=== PATIENT | female | born 1950 | race Caucasian/White ===

== ENCOUNTER 2016-11-15 07:14 | Emergency (ER) | payer OTHER ==
--- NOTE | 2016-11-15 08:23 | DIAGNOSTIC IMAGING REPORT ---
PROCEDURE: XR CHEST 1 VIEW INDICATION: LEFT UPPER BACK PAIN RADIATING TO LEFT ARM TECHNIQUE: Portable AP view 08:08 a.m. COMPARISON: None. FINDINGS: Lungs are clear. Heart and mediastinum are normal. Thorax is normal. IMPRESSION: 1. Negative chest.
--- NOTE | 2016-11-15 08:42 | ED ORDER SUMMARY ---
..... Patient: TYRESE BRANCH OrderSheet [facility] VisitID: [id number] [address] [place] [address] 66y, F Registration Date/Time: 11/15/2016 ORDER SHEET Weight: 61.2 kg (stated) Allergies: Penicillins, Sulfa Antibiotics GENERAL ORDERS: Chest 1V Urgent (07:11/15/2016 Nyasia Grider) (Ack 7:47 Anita) [employer] Sales Representative (Continuous) (CP equivalent) (07:11/15/2016 Nyasia Grider) (7:42 MWinterer R.N.) CBC w Diff Urgent (07:11/15/2016 Nyasia Grider) (Ack 7:47 Anita) CMP Urgent (07:11/15/2016 Nyasia Grider) (Ack 7:47 Anita) PT with INR Urgent (07:11/15/2016 Nyasia Grider) (Ack 7:47 Anita) PTT Urgent (07:11/15/2016 Nyasia Grider) (Ack 7:47 Anita) D-Dimer Urgent (07:11/15/2016 Nyasia Grider) (Ack 7:47 Anita) Troponin-I Urgent (07:11/15/2016 Nyasia Grider) (Ack 7:47 Anita) Pulse oximeter (07:11/15/2016 Nyasia Grider) (7:42 MWinterer R.N.) MEDICATION ORDERS: IV FLUIDS: IV Saline Lock (07:11/15/2016 Nyasia Grider) (7:42 MWinterer R.N.) ORDER SHEET NOTES: [Electronically signed by Mikael Villa R.N. (07:50 11/15/2016)] [Electronically locked/signed by Mikael Villa R.N. (07:50 11/15/2016)]
--- NOTE | 2016-11-15 08:42 | ED NURSING NOTES ---
Clinical Report - Nurses [facility] [address] [place] [address] 11/15/2016 7:14 Patient: TYRESE BRANCH TRIAGE Acuity: LEVEL 2. Chief Complaint: LEFT ARM PAIN, INDIGESTION, BACK PAIN and DIFFICULTY BREATHING (pt reports mid back pain that began yesterday with radiation to left arm, accomp with "cold sweats"). Alert. No acute distress. SEPSIS SCREEN: Sepsis Screen. Negative (no infection suspected/documented). --07:27 Mikael Villa R.N. 07:19 11/15/16. BP: 132/80. HR: 81 (regular). RR: 15. O2 saturation: 100% on room air. Temp: 97.6 F. Pain level now: 8/10. Additional comments: pt reports pain now 8/10 left side of neck with pain down left arm. --07:27 Mikael Villa R.N. 08:10 11/15/16. BP: 138/81. HR: 64 (regular and normal rate). RR: 15. O2 saturation: 100% on room air. --08:11 Mikael Villa R.N. Weight: 61.2 kg stated. Height/Length: 62 inches Per Patient. BMI: 24.7. --07:25 Mikael Villa R.N. Medications Levothyroxine Sodium Oral. --09:09 Mikael Villa R.N. Allergies Penicillins. --07:22 Mikael Villa R.N. Sulfa Antibiotics. --07:22 Mikael Villa R.N. History Arrived by private vehicle. Historian: patient. This started yesterday. She has had difficulty breathing. Reports experiencing sweating episodes. Treatment ELECTORAL OFFICER: Applied ice and heat. Took ibuprofen. PAST MEDICAL HX: Immunizations: up-to-date. The patient is post-menopausal. SOCIAL HX: Never smoker. Alcohol use; consumes two wine daily. No drug use. No infectious disease exposure. ABUSE ASSESSMENT: No report of abuse. SELF HARM ASSESSMENT: A self harm assessment was performed. The patient answered "no" to the question "Have you recently felt down, depressed, or hopeless?", "Have you noticed less interest or pleasure in doing things?", "Do you have thoughts of harming or killing yourself?", "Are you here because you tried to hurt yourself?", "Have you ever tried to hurt yourself before today?", "Have you recently had thoughts about harming or killing others?" and "Do you have any dangerous items in your possession?". FALL RISK ASSESSMENT: Fall risk assessment completed. No fall risk identified. NUTRITIONAL RISK ASSESSMENT: The nutritional risk assessment revealed no deficiencies. FUNCTIONAL ASSESSMENT: Functional assessment: no impairments noted. LEARNING NEEDS ASSESSMENT: (pt wears hearing aids). SKIN INTEGRITY ASSESSMENT: Skin integrity risk assessment completed. No skin integrity risk identified. --07:27 Mikael Villa R.N. PROBLEMS: Hypothyroidism. --07:26 Mikael Villa R.N. ADDITIONAL SURGERIES: Cataract Surgery. Cochlear implant. Tonsillectomy. --07:23 Mikael Villa R.N. Interventions ID and allergy band on patient. Protocol initiated. To treatment room. --07:27 Mikael Villa R.N. PHYSICAL ASSESSMENT Ambulatory to room. GENERAL / NEURO / PSYCH: Alert. Oriented X 4. Appears in no acute distress. HEENT: Mucous membranes are pink. RESPIRATORY: Respirations not labored. Breath sounds within normal limits. CVS: Cardiac rhythm: sinus rhythm. Pulses within normal limits. Capillary refill less than 2 seconds. GI / : Abdomen soft and nontender. EXTREMITIES: No lower extremity edema. SKIN: Skin is warm and dry. Normal skin turgor. Skin is non-tender. --07:27 Mikael Villa R.N. NURSING PROGRESS NOTES Monitoring of patient in place. Blood samples drawn. (with iv start). Patient gowned. Head of bed elevated. Reassurance given to the patient and patient's family (family arrived at bedside). Two patient identifiers checked. Call light placed in reach. Side rails up x 2. Bed placed in lowest position. Brakes of bed on. Patient ready for evaluation- chart flagged. --07:30 Mikael Villa R.N. EKG time: (719). EKG was ordered, performed by a tech and shown to the ED physician. --07:32 Ebonie Morrow 07:27 11/15/2016 Site #1 started via IV in the right antecubital space with an 20g angiocath, with aseptic technique and good blood return; one attempt. Blood drawn: rainbow set. Labeled in the presence of the patient and sent to the lab. Saline lock flushed with 10 mL saline. --07:42 Sosa Cooper R.N. Portable chest x-ray. The patient is calm and resting quietly. RESPIRATORY: No respiratory distress. ( chest xray at bedside, pt remains in SR, no ectopy noted on monitor. family at bedside, waiting further poc). --08:10 Mikael Villa R.N. ( warm blankets provided for comfortMD at bedside explaining results of tests). --08:28 Mikael Villa R.N. DISPOSITION / DISCHARGE 08:50 11/15/2016 Site #1 removed upon discharge. Bandaid applied. --08:55 Mikael Villa R.N. Condition at departure: unchanged. ( pt provided dc instructions and rx for pickup upon dispo. pt rates pain and symptoms unchanged, pt highly encouraged to return for worsening or changing symptoms. family and pt verbalized understanding). No learning barriers present. Discharge instructions provided and reviewed with the patient. Reviewed medication(s) side effects and precautions information. Prescription(s) given to the patient. Activity restrictions reviewed (per dc instructions). Patient and family verbalized understanding. Written instructions provided in Hungarian. The patient was discharged by the physician. She was discharged home and accompanied by family. She left the Emergency Department ambulatory, via private vehicle and (ambulated to lobby without signs of distress). Family member driving. FALL RISK ASSESSMENT: Fall risk assessment completed. No fall risk identified. --08:57 Mikael Villa R.N. 09:03 11/15/16. BP: 126/87. HR: 59. RR: 15. Pain level now: 01/30. 08:52 11/15/16. BP: 139/86. HR: 66. RR: 16. O2 saturation: 100% on room air. Temp: 98.3 F (oral). Pain level now: 01/30. 08:10 11/15/16. BP: 138/81. HR: 64 (regular and normal rate). RR: 15. O2 saturation: 100% on room air. 07:19 11/15/16. BP: 132/80. HR: 81 (regular). RR: 15. O2 saturation: 100% on room air. Temp: 97.6 F. Pain level now: 04/01. Additional comments: pt reports pain now 8/10 left side of neck with pain down left arm. --09:05 Mikael Villa R.N. Locked/Released at 11/15/2016 9:10 by Mikael Villa R.N.
--- NOTE | 2016-11-15 08:42 | ED CLINICAL REPORT ---
Clinical Report - Physicians/Mid Levels [facility] [address] [place] [address] 11/15/2016 7:14 Patient: TYRESE BRANCH Arrived- By private vehicle. Historian- patient. HISTORY OF PRESENT ILLNESS Chief Complaint: CHEST PAIN. It is described as located in the back (left medial scapular) and radiating (left chest). At its maximum, severity described as moderate. When seen in the E.D., severity described as moderate. Modifying factors- (worsened by laying on left sided. better with not laying on left sided). This started yesterday and is still present (staying the same). It was abrupt in onset and has been constant and waxing/waning but is not gone now. Onset during rest. No vomiting. She has had difficulty breathing and has experienced diaphoresis. No additional chest pain. Similar symptoms previously: None. REVIEW OF SYSTEMS No cough, pedal edema, calf pain or skin rash. All systems otherwise negative, except as recorded above. PAST HISTORY See nurses notes. Medications: Levothyroxine Sodium Oral. Allergies: Penicillins. Sulfa Antibiotics. SOCIAL HISTORY Never smoker. Alcohol use. No drug use. No recent travel. Is a local resident. ADDITIONAL NOTES The nursing notes have been reviewed. PHYSICAL EXAM Vital Signs: Blood pressure normal. Oxygen saturation normal. Appearance: Alert. Oriented X3. No acute distress. Eyes: Pupils equal, round and reactive to light. Eyes normal inspection. ENT: Ears normal. Nose normal. Pharynx normal. Neck: Normal inspection. Neck supple. No meningeal signs. (no step-offs. No crepitus. Overlying skin changes. No midline tenderness). CVS: Normal heart rate and rhythm. Heart sounds normal. Pulses normal. Respiratory: No respiratory distress. Breath sounds normal. Chest nontender. Abdomen: Soft and nontender. Bowel sounds normal. No mass. Back: Normal external inspection. (No step-offs. No crepitus. Overlying skin changes. no midline tenderness). Skin: Skin warm and dry. Normal skin color. No rash. Normal skin turgor. Extremities: Extremities exhibit normal ROM. No lower extremity edema. LABS, X-RAYS, AND EKG EKG: No acute ischemia. Normal EKG. Normal sinus rhythm. Rate: 69. Normal P waves. Normal CHAZ. Normal QRS complex. Normal axis. Normal ST and T waves, QT and QTc. Normal sinus. Prior EKG unavailable. The study has been interpreted contemporaneously. The study has been independently viewed by me. The EKG appears to be a good tracing. I do not agree with or confirm the computer reading of the EKG. Chest X-ray: (PROCEDURE: XR CHEST 1 VIEW INDICATION: LEFT UPPER BACK PAIN RADIATING TO LEFT ARM TECHNIQUE: Portable AP view 08:08 a.m. COMPARISON: None. FINDINGS: Lungs are clear. Heart and mediastinum are normal. Thorax is normal. IMPRESSION: 1. Negative chest.). Laboratory Tests: CBC w Diff: (FELIX: 11/15/2016 07:15) ( MsgRcvd 11/15/2016 07:59) Final results Test Result Flag Units (Reference) WHITE BLOOD COUNT 6.2 K/uL (4.5-11.5) RED BLOOD COUNT 5.22 H M/uL (4.00-5.20) HEMOGLOBIN 15.5 gm/dL (12.0-16.0) HEMATOCRIT 46.3 H % (36.0-46.0) MEAN CELL VOLUME 89 fL (80-100) MEAN CORPUSCULAR HGB 30 pg (26-34) MEAN CORPUSCULAR HGB CONC 33 g/dL (31-37) RED CELL DISTRIBUTION WIDTH 12.2 % (11.6-14.8) PLATELET COUNT 275 K/uL (150-400) NEUTROPHIL % 73.0 % (50-75) LYMPH % 19.9 L % (25-40) MONO % 5.0 % (3-14) EOSINOPHIL % 1.5 % (0-4) BASOPHIL % 0.6 % (0-2) PT with INR: (FELIX: 11/15/2016 07:15) ( MsgRcvd 11/15/2016 07:58) Final results Test Result Flag Units (Reference) INR 1.0 (0.8-1.2) Low Intensity Therapy: INR 1.5-2.0 PT range 18.5-23.1Mod.Intensity Therapy: INR 2.0-3.0 PT range 23.1-31.5High Intensity Therapy: INR 2.5-3.5 PT range 27.4-35.5High Intensity Therapy 2: INR 3.0-4.0 PT range 31.5-39.3 APTT 40 H SECONDS (24-34) D-DIMER QUANTITATIVE < 0.27 L ug/mLFEU (0.27-0.52) The primary value of this quantitative assay relates toits negative predictive value (i.e. exclusion) of pulmonaryembolism/deep vein thrombosis/DIC.Elevated levels of d-dimer may also occur with:, age, cancer, inflammation, liver disease,post-op, infection, hematoma, coronary disease, peripheralarteriopathy, bleeding disorders and thrombolytic treatment.Results should be correlated with other clinical andradiological data.Testing Methodology: Latex Immunoassay CMP: (FELIX: 11/15/2016 07:15) ( MsgRcvd 11/15/2016 08:22) Final results Test Result Flag Units (Reference) GLUCOSE 137 H mg/dL (70-110) BUN 15 mg/dL (7-18) CREATININE 0.9 mg/dL (0.6-1.3) Estimated GFR >60 mL/min Estimated GFR- >60 mL/min Note: Persistent reduction over 3 months in eGFR<60 mL/min/1.73 m2 defines CKD. Patients with eGFR values>=60 mL/min/1.73 m2 may also have CKD if evidence ofpersistent proteinuria. Additional information may be foundat www.kidney.org. SODIUM 141 mmol/L (136-145) POTASSIUM 3.9 mmol/L (3.5-5.1) CHLORIDE 106 mmol/L (98-107) CARBON DIOXIDE 27 mmol/L (21-32) CALCIUM 9.4 mg/dL (8.5-10.1) TOTAL PROTEIN 7.8 g/dL (6.4-8.2) ALBUMIN 4.1 g/dL (3.3-5.0) BILIRUBIN, TOTAL 0.6 mg/dL (0.0-1.0) ALKALINE PHOSPHATASE 89 U/L (46-116) AST (SGOT) 23 U/L (15-37) ALT (SGPT) 29 U/L (12-78) TROPONIN I <0.05 ng/mL (0.00-1.5) TROPONIN REFERENCE RANGE:<0.1 NEGATIVE0.1-1.5 INDETERMINANT>1.5 POSITIVE . PROGRESS AND PROCEDURES Course of Care: the patient is a pleasant 66-year-old female presented for evaluation ofleft upper back pain which radiates to the left side of her chest. At this time differential diagnosis includes thoracic aortic dissection, acute myocardial infarction, pneumonia, pneumothorax, And pulmonary embolism. Patient will be evaluated the EKG, chest x-ray, laboratory studies including troponin andd-dimer. If the d-dimer is noted to be normal, patientis at low risk for having thoracic aortic cession as well as pulmonary embolism. Discussed with patient workup here in the emergency department. Patient is agreeable to the treatment plan. The patient's workup was remarkable for the findings above. Troponin is noted to be negative. White blood cell count is noted to be unremarkable. X-rays are also unremarkable. No findings noted on chest x-ray EKG. Troponin and d-dimer noted to be normal. Because the patient's normal troponin and d-dimer, do not fill patient is having thoracic aortic dissection, pulmonary embolism, acute myocardial infarction. Chest x-ray also clear, no signs of pneumonia or pneumothorax. because of the patient's time course of her chest pain/back pain,feel the patient only needsone set of enzymes forevaluation of acute myocardial infarction. Patient reports significant improvement with her symptoms while here in the emergency department. Had discussion with patient in regards to her symptoms here in the emergency department any for appropriate follow-up. Recommended patient follow up with her regional vice president life sales or get a referral for a regional vice president life sales. Also discussed the patient her workup here in the emergency department including diagnosis, home care, follow-up, and return precautions. All questions have been answered. The patient expressed understanding of these instructions and was agreeable to them. Disposition: Discharged. Condition: good. CLINICAL IMPRESSION 11/15/2016 07:19 BP: 132/80. HR: 81. RR: 15. O2 saturation: 100%. Temp: 97.6 F. Pain level now: 8/10. Oxygen saturation normal. Atypical chest pain (acute left posterior (back)). INSTRUCTIONS Warnings: GENERAL WARNINGS: Return or contact your physician immediately if your condition worsens or changes unexpectedly, if not improving as expected, or if other problems arise. SPECIFICALLY, return if you develop chest, neck, jaw, shoulder, arm, or back pain, difficulty breathing, a fluttering sensation in your chest, lightheadedness, fainting, excessive fatigue, or sudden sweating. Prescription Medications: [employer] 5 mg / 325 mg tablets: take 1 orally every 6 hours as needed for pain. Dispense twelve (12). No refill. Substitution is permissible. Follow-up: Return to the emergency department as needed. Follow up with your doctor in three days. Reason for referral: recheck today's concerns. Summary of care provided to patient via paper. Screening today revealed the patient's blood pressure to be in the normal range. The patient should follow up with a primary care provider for blood pressure management. Understanding of the discharge instructions verbalized by patient. (Electronically signed by Kael Noland Dr. 11/19/2016 17:31)
--- NOTE | 2016-11-15 08:42 | ED ORDER SUMMARY ---
..... Patient: TYRESE BRANCH OrderSheet [facility] VisitID: [id number] [address] [place] [address] 66y, F Registration Date/Time: 11/15/2016 ORDER SHEET Weight: 61.2 kg (stated) Allergies: Penicillins, Sulfa Antibiotics GENERAL ORDERS: Chest 1V Urgent (07:11/15/2016 Nyasia Grider) (Ack 7:47 Anita) Cryptographer (Continuous) (CP equivalent) (07:11/15/2016 Nyasia Grider) (7:42 MWinterer R.N.) CBC w Diff Urgent (07:11/15/2016 Nyasia Grider) (Ack 7:47 Anita) CMP Urgent (07:11/15/2016 Nyasia Grider) (Ack 7:47 Anita) PT with INR Urgent (07:11/15/2016 Nyasia Grider) (Ack 7:47 Anita) PTT Urgent (07:11/15/2016 Nyasia Grider) (Ack 7:47 Anita) D-Dimer Urgent (07:11/15/2016 Nyasia Grider) (Ack 7:47 Anita) Troponin-I Urgent (07:11/15/2016 Nyasia Grider) (Ack 7:47 Anita) Pulse oximeter (07:11/15/2016 Nyasia Grider) (7:42 MWinterer R.N.) MEDICATION ORDERS: IV FLUIDS: IV Saline Lock (07:11/15/2016 Nyasia Griedr) (7:42 MWinterer R.N.) ORDER SHEET NOTES: [Electronically signed by Mikael Villa R.N. (07:50 11/15/2016)] [Electronically locked/signed by Mikael Villa R.N. (07:50 11/15/2016)]
--- NOTE | 2016-11-19 17:32 | ED DISCHARGE INSTRUCTIONS ---
Patient: TYRESE BRANCH General Instructions [facility] VisitID: [id number] [address] [place] [address] 66y, F Registration Date/Time: 11/15/2016 11/15/2016 07:19 BP: 132/80. HR: 81. RR: 15. O2 saturation: 100%. Temp: 97.6 F. Pain level now: 8/10. Oxygen saturation normal. Atypical chest pain (acute left posterior (back)). INSTRUCTIONS Warnings: GENERAL WARNINGS: Return or contact your physician immediately if your condition worsens or changes unexpectedly, if not improving as expected, or if other problems arise. SPECIFICALLY, return if you develop chest, neck, jaw, shoulder, arm, or back pain, difficulty breathing, a fluttering sensation in your chest, lightheadedness, fainting, excessive fatigue, or sudden sweating. Prescription Medications: [place] 5 mg / 325 mg tablets: take 1 orally every 6 hours as needed for pain. Dispense twelve (12). No refill. Substitution is permissible. Follow-up: Return to the emergency department as needed. Follow up with your doctor in three days. Reason for referral: recheck today's concerns. Summary of care provided to patient via paper. Screening today revealed the patient's blood pressure to be in the normal range. The patient should follow up with a primary care provider for blood pressure management. Understanding of the discharge instructions verbalized by patient. ADDITIONAL INFORMATION Chest Pain, Uncertain Cause Chest pain can happen for a number of reasons. Sometimes the cause can not be determined. If yourcondition does not seem serious, and your pain does not appear to be coming from your heart, your doctor may recommend watching it closely. Sometimes the signs of a serious problem take more time to appear. Therefore, watch for the warning signs listed below. Home care After your visit, follow these recommendations: Rest today and avoid strenuous activity. Take any prescribed medicine as directed. Follow-up care Follow up with your doctor or this facility as instructed or if you do not start to feel better within 24 hours. Call 911 Get immediate medical attention if any of the following occur: A change in the type of pain: if it feels different, becomes more severe, lasts longer, or begins to spread into your shoulder, arm, neck, jaw or back Shortness of breath or increased pain with breathing Weakness, dizziness, or fainting Rapid heart beat Get prompt medical attention Call your doctor right away if any of the following occur: Cough with dark colored sputum (phlegm) or blood Fever of 100.4F(38C) or higher, or as directed by your health care provider Swelling, pain or redness in one leg Hydrocodone Bitartrate, Acetaminophen Oral tablet What is this medicine? ACETAMINOPHEN; HYDROCODONE (a set a JOSHUA alexander fen; flor droe KOE done) is a pain reliever. It is used to treat mild to moderate pain. How should I use this medicine? Take this medicine by mouth. Swallow it with a full glass of water. Follow the directions on the prescription label. If the medicine upsets your stomach, take the medicine with food or milk. Do not take more than you are told to take. Talk to your lamination machine operator regarding the use of this medicine in children. This medicine is not approved for use in children. What side effects may I notice from receiving this medicine? Side effects that you should report to your doctor or health healthcare management as soon as possible: allergic reactions like skin rash, itching or hives, swelling of the face, lips, or tongue breathing problems confusion feeling faint or lightheaded, falls stomach pain yellowing of the eyes or skin Side effects that usually do not require medical attention (report to your doctor or health healthcare management if they continue or are bothersome): nausea, vomiting stomach upset What may interact with this medicine? alcohol antihistamines isoniazid medicines for depression, anxiety, or psychotic disturbances medicines for sleep muscle relaxants naltrexone narcotic medicines (opiates) for pain phenobarbital ritonavir tramadol What if I miss a dose? If you miss a dose, take it as soon as you can. If it is almost time for your next dose, take only that dose. Do not take double or extra doses. Where should I keep my medicine? Keep out of the reach of children. This medicine can be abused. Keep your medicine in a safe place to protect it from theft. Do not share this medicine with anyone. Selling or giving away this medicine is dangerous and against the law. Store at room temperature between 15 and 30 degrees C (59 and 86 degrees F). Protect from light. Keep container tightly closed. Throw away any unused medicine after the expiration date. Discard unused medicine and used packaging carefully. Pets and children can be harmed if they find used or lost packages. What should I tell my health care provider before I take this medicine? They need to know if you have any of these conditions: brain tumor Crohn's disease, inflammatory bowel disease, or ulcerative colitis drink more than 3 alcohol-containing drinks per day drug abuse or addiction head injury heart or circulation problems kidney disease or problems going to the bathroom liver disease lung disease, asthma, or breathing problems an unusual or allergic reaction to acetaminophen, hydrocodone, other opioid analgesics, other medicines, foods, dyes, or preservatives or trying to get breast-feeding What should I watch for while using this medicine? Tell your doctor or health healthcare management if your pain does not go away, if it gets worse, or if you have new or a different type of pain. You may develop tolerance to the medicine. Tolerance means that you will need a higher dose of the medicine for pain relief. Tolerance is normal and is expected if you take the medicine for a long time. Do not suddenly stop taking your medicine because you may develop a severe reaction. Your body becomes used to the medicine. This does NOT mean you are addicted. Addiction is a behavior related to getting and using a drug for a non-medical reason. If you have pain, you have a medical reason to take pain medicine. Your doctor will tell you how much medicine to take. If your doctor wants you to stop the medicine, the dose will be slowly lowered over time to avoid any side effects. You may get drowsy or dizzy when you first start taking the medicine or change doses. Do not drive, use machinery, or do anything that may be dangerous until you know how the medicine affects you. Stand or sit up slowly. There are different types of narcotic medicines (opiates) for pain. If you take more than one type at the same time, you may have more side effects. Give your health care provider a list of all medicines you use. Your doctor will tell you how much medicine to take. Do not take more medicine than directed. Call emergency for help if you have problems breathing. The medicine will cause constipation. Try to have a bowel movement at least every 2 to 3 days. If you do not have a bowel movement for 3 days, call your doctor or health healthcare management. Too much acetaminophen can be very dangerous. Do not take Tylenol (acetaminophen) or medicines that contain acetaminophen with this medicine. Many non-prescription medicines contain acetaminophen. Always read the labels carefully. You have been given the following additional information: Chest Pain, Uncertain Cause Hydrocodone Bitartrate, Acetaminophen Oral tablet (Electronically signed by Kael Noland Dr. 11/19/2016 17:31)
--- NOTE | 2016-11-19 17:32 | ED MED RECONCILIATION SUMMARY ---
Patient: TYRESE BRANCH Medication Reconciliation Report [facility] VisitID: [id number] [address] [place] [address] 66y, F Registration Date/Time: 11/15/2016 Weight: 61.2 kg Height/Length: 62 in. BMI: 24.7 ALLERGIES: Penicillins, Sulfa Antibiotics The patient's Home Medications are listed below: THE FOLLOWING MEDICATIONS NEED TO BE RECONCILED: Levothyroxine Sodium Oral The source(s) of the original Home Medication information: Not obtained. The following Medications were given to the patient in the Emergency Department: None. The following Medications were prescribed to the patient: [place] 5 mg / 325 mg tablets: take 1 orally every 6 hours as needed for pain. Dispense twelve (12). No refill. Substitution is permissible. -- Kael Noland Dr.
--- NOTE | 2016-11-19 17:32 | ED MED RECONCILIATION SUMMARY ---
Patient: TYRESE BRANCH Medication Reconciliation Report [facility] VisitID: [id number] [address] [place] [address] 66y, F Registration Date/Time: 11/15/2016 Weight: 61.2 kg Height/Length: 62 in. BMI: 24.7 ALLERGIES: Penicillins, Sulfa Antibiotics The patient's Home Medications are listed below: THE FOLLOWING MEDICATIONS NEED TO BE RECONCILED: Levothyroxine Sodium Oral The source(s) of the original Home Medication information: Not obtained. The following Medications were given to the patient in the Emergency Department: None. The following Medications were prescribed to the patient: [place] 5 mg / 325 mg tablets: take 1 orally every 6 hours as needed for pain. Dispense twelve (12). No refill. Substitution is permissible. -- Kael Noland Dr.
--- NOTE | 2016-11-19 17:32 | ED MAR SUMMARY ---
..... Medication Administration Record [facility] [address], [place] [id number] Patient: TYRESE BRANCH Visit ID: [id number] 66y, F Weight: 61.2 kg Height/Length: 62 in BMI: 24.7 ALLERGIES: Sulfa Antibiotics, Penicillins
--- NOTE | 2016-11-19 17:32 | ED MAR SUMMARY ---
..... Medication Administration Record [facility] [address] [place], [place] [id number] Patient: TYRESE BRANCH Visit ID: [id number] 66y, F Weight: 61.2 kg Height/Length: 62 in BMI: 24.7 ALLERGIES: Sulfa Antibiotics, Penicillins
--- NOTE | 2016-11-19 17:32 | ED DISCHARGE INSTRUCTIONS ---
Patient: TYRESE BRANCH General Instructions [facility] VisitID: [id number] [address] [place] [address] 66y, F Registration Date/Time: 11/15/2016 11/15/2016 07:19 BP: 132/80. HR: 81. RR: 15. O2 saturation: 100%. Temp: 97.6 F. Pain level now: 8/10. Oxygen saturation normal. Atypical chest pain (acute left posterior (back)). INSTRUCTIONS Warnings: GENERAL WARNINGS: Return or contact your physician immediately if your condition worsens or changes unexpectedly, if not improving as expected, or if other problems arise. SPECIFICALLY, return if you develop chest, neck, jaw, shoulder, arm, or back pain, difficulty breathing, a fluttering sensation in your chest, lightheadedness, fainting, excessive fatigue, or sudden sweating. Prescription Medications: [place] 5 mg / 325 mg tablets: take 1 orally every 6 hours as needed for pain. Dispense twelve (12). No refill. Substitution is permissible. Follow-up: Return to the emergency department as needed. Follow up with your doctor in three days. Reason for referral: recheck today's concerns. Summary of care provided to patient via paper. Screening today revealed the patient's blood pressure to be in the normal range. The patient should follow up with a primary care provider for blood pressure management. Understanding of the discharge instructions verbalized by patient. ADDITIONAL INFORMATION Chest Pain, Uncertain Cause Chest pain can happen for a number of reasons. Sometimes the cause can not be determined. If yourcondition does not seem serious, and your pain does not appear to be coming from your heart, your doctor may recommend watching it closely. Sometimes the signs of a serious problem take more time to appear. Therefore, watch for the warning signs listed below. Home care After your visit, follow these recommendations: Rest today and avoid strenuous activity. Take any prescribed medicine as directed. Follow-up care Follow up with your doctor or this facility as instructed or if you do not start to feel better within 24 hours. Call 911 Get immediate medical attention if any of the following occur: A change in the type of pain: if it feels different, becomes more severe, lasts longer, or begins to spread into your shoulder, arm, neck, jaw or back Shortness of breath or increased pain with breathing Weakness, dizziness, or fainting Rapid heart beat Get prompt medical attention Call your doctor right away if any of the following occur: Cough with dark colored sputum (phlegm) or blood Fever of 100.4F(38C) or higher, or as directed by your health care provider Swelling, pain or redness in one leg Hydrocodone Bitartrate, Acetaminophen Oral tablet What is this medicine? ACETAMINOPHEN; HYDROCODONE (a set a JOSHUA alexander fen; flor droe KOE done) is a pain reliever. It is used to treat mild to moderate pain. How should I use this medicine? Take this medicine by mouth. Swallow it with a full glass of water. Follow the directions on the prescription label. If the medicine upsets your stomach, take the medicine with food or milk. Do not take more than you are told to take. Talk to your outreach librarian regarding the use of this medicine in children. This medicine is not approved for use in children. What side effects may I notice from receiving this medicine? Side effects that you should report to your doctor or health child caregiver as soon as possible: allergic reactions like skin rash, itching or hives, swelling of the face, lips, or tongue breathing problems confusion feeling faint or lightheaded, falls stomach pain yellowing of the eyes or skin Side effects that usually do not require medical attention (report to your doctor or health child caregiver if they continue or are bothersome): nausea, vomiting stomach upset What may interact with this medicine? alcohol antihistamines isoniazid medicines for depression, anxiety, or psychotic disturbances medicines for sleep muscle relaxants naltrexone narcotic medicines (opiates) for pain phenobarbital ritonavir tramadol What if I miss a dose? If you miss a dose, take it as soon as you can. If it is almost time for your next dose, take only that dose. Do not take double or extra doses. Where should I keep my medicine? Keep out of the reach of children. This medicine can be abused. Keep your medicine in a safe place to protect it from theft. Do not share this medicine with anyone. Selling or giving away this medicine is dangerous and against the law. Store at room temperature between 15 and 30 degrees C (59 and 86 degrees F). Protect from light. Keep container tightly closed. Throw away any unused medicine after the expiration date. Discard unused medicine and used packaging carefully. Pets and children can be harmed if they find used or lost packages. What should I tell my health care provider before I take this medicine? They need to know if you have any of these conditions: brain tumor Crohn's disease, inflammatory bowel disease, or ulcerative colitis drink more than 3 alcohol-containing drinks per day drug abuse or addiction head injury heart or circulation problems kidney disease or problems going to the bathroom liver disease lung disease, asthma, or breathing problems an unusual or allergic reaction to acetaminophen, hydrocodone, other opioid analgesics, other medicines, foods, dyes, or preservatives or trying to get breast-feeding What should I watch for while using this medicine? Tell your doctor or health child caregiver if your pain does not go away, if it gets worse, or if you have new or a different type of pain. You may develop tolerance to the medicine. Tolerance means that you will need a higher dose of the medicine for pain relief. Tolerance is normal and is expected if you take the medicine for a long time. Do not suddenly stop taking your medicine because you may develop a severe reaction. Your body becomes used to the medicine. This does NOT mean you are addicted. Addiction is a behavior related to getting and using a drug for a non-medical reason. If you have pain, you have a medical reason to take pain medicine. Your doctor will tell you how much medicine to take. If your doctor wants you to stop the medicine, the dose will be slowly lowered over time to avoid any side effects. You may get drowsy or dizzy when you first start taking the medicine or change doses. Do not drive, use machinery, or do anything that may be dangerous until you know how the medicine affects you. Stand or sit up slowly. There are different types of narcotic medicines (opiates) for pain. If you take more than one type at the same time, you may have more side effects. Give your health care provider a list of all medicines you use. Your doctor will tell you how much medicine to take. Do not take more medicine than directed. Call emergency for help if you have problems breathing. The medicine will cause constipation. Try to have a bowel movement at least every 2 to 3 days. If you do not have a bowel movement for 3 days, call your doctor or health child caregiver. Too much acetaminophen can be very dangerous. Do not take Tylenol (acetaminophen) or medicines that contain acetaminophen with this medicine. Many non-prescription medicines contain acetaminophen. Always read the labels carefully. You have been given the following additional information: Chest Pain, Uncertain Cause Hydrocodone Bitartrate, Acetaminophen Oral tablet (Electronically signed by Kael Noland Dr. 11/19/2016 17:31)
== END 2016-11-15 08:56 | disposition home or self-care (01) ==
LOC: ED SRH 07:14
DX: R07.89 Other chest pain (principal); Z88.0 Allergy status to penicillin; Z88.8 Allergy status to other drugs, medicaments and biological substances
CPT/HCPCS: 90100; 90616; 91556; 94001; 94060; 95059

== ENCOUNTER 2016-11-20 10:40 | Outpatient (CLI) | payer OTHER ==
--- NOTE | 2016-11-20 11:07 | DIAGNOSTIC IMAGING REPORT ---
PROCEDURE: CT CERVICAL SPINE W/O CONTRAST INDICATION: RADICULOPATHY TECHNIQUE: Noncontrast axial images with sagittal and coronal reformations. COMPARISON: None. FINDINGS: No evidence of an acute process or fracture. There is spondylosis at C4-5 with the disc space narrowing and uncinate process hypertrophy with impingement on the foramen on the left. At C5-6 there is spondylosis with disc space narrowing and bilateral uncinate process hypertrophy and bilateral foraminal impingement. Eight C6-7 again there is a spondylosis with uncinate process hypertrophy on the right with neural foraminal impingement. IMPRESSION: 1. 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 Bilateral foraminal impingement C5-6. Impingement on the left at C4-5 and on the right at C6-7
== END 2016-11-20 23:00 ==
LOC: CT SRH 10:40
DX: M47.812 Spondylosis without myelopathy or radiculopathy, cervical region (principal)

== ENCOUNTER 2017-02-19 11:24 | Outpatient (CLI) | payer OTHER ==
--- NOTE | 2017-02-19 11:58 | DIAGNOSTIC IMAGING REPORT ---
PROCEDURE: DEXA BONE DENSITY STUDY CLINICAL INDICATION: SCREENING FOR OSTEOPROSIS COMPARISON: 07/10/2005 FINDINGS: LUMBAR SPINE: Bone mineral density 1.025 g/cm2, T score -0.2, normal, change from previous -2.6 percent, significant LEFT HIP: Bone mineral density 0.893 g/cm2, T score -0.4 normal, change from previous -10.3 percent, significant LEFT FEMORAL NECK: Bone mineral density 0.783 g/cm2, T score -0.6, normal, change from previous -11.7 percent, significant FRACTURE RISK CALCULATION ( when applicable): 10-year fracture risk of a major osteoporotic fracture not calculated because all T scores are at or above -1.0. (T score greater or equal to -1.0 to: NORMAL) (T score from -1.1 to -2.4: OSTEOPENIA) (T score ess than or equal to -2.5: OSTEOPOROSIS) IMPRESSION: 1. Normal bone mineral density without elevated risk of fracture. 2. There has, however, been a significant interval decrease in bone mineral density since the prior study in lumbar spine and left hip.
== END 2017-02-19 23:00 ==
LOC: XR SRH 11:24
DX: Z13.820 Encounter for screening for osteoporosis (principal)